=== PATIENT | male | born 1980 | race African-American/Black ===

== ENCOUNTER 2020-03-04 09:29 | Emergency (ER) | payer MEDICAID, OTHER ==
[~2020-03-04] VITALS: Ht 195.6 cm; Wt 104.3 kg
[2020-03-04 10:12] VITALS: BP 122/69
== END 2020-03-04 10:31 | disposition home or self-care (01) ==
LOC: ER 09:29
DX: I10 Essential (primary) hypertension (principal); R56.9 Unspecified convulsions; Z76.0 Encounter for issue of repeat prescription; F17.210 Nicotine dependence, cigarettes, uncomplicated